=== PATIENT | female | born 1935 | race Caucasian/White ===

== ENCOUNTER 2017-01-22 17:06 | Inpatient (IN) | payer MEDICARE, BC ==
[~2017-01-22] VITALS: Ht 157.5 cm; Wt 71.0 kg
[2017-01-22 18:52] VITALS: O2SAT 92
[2017-01-22] MEDS ORDERED: SODIUM CHLORIDE FLUSH PRN IV FLUSH (19:30)
[2017-01-22] MEDS ORDERED: MORPHINE SULFATE 4 MG/ML INJ IV PRN (19:30)
[2017-01-22 20:00] VITALS: BP 140/63; PULSE 61; RESP 17; TEMP 97.1; O2SAT 99
[2017-01-22] MEDS: ACETAMINOPHEN/HYDROcodone 325 MG/5 MG TAB PO PRN ×2 (20:04→23:43)
[2017-01-22] MEDS: PRAVASTATIN SOD 80 MG TAB PO SCH (20:08)
[2017-01-22] MEDS: SODIUM CHLORIDE FLUSH BID IV FLUSH SCH (20:09)
[2017-01-22 22:17] VITALS: O2SAT 95
[2017-01-22] MEDS: DORZOLAMIDE/TIMOLOL OPTH SOLN 10 ML BTL EACH EYE SCH (23:39)
[2017-01-22] MEDS: LATANOPROST 0.005% OPHT SOLN 2.5 ML BTL EACH EYE SCH (23:40)
[2017-01-23] VITALS: BP 141/63; PULSE 66; RESP 17; TEMP 96.4; O2SAT 98
[2017-01-23 04:00] VITALS: BP 124/63; PULSE 61; RESP 17; TEMP 96.2; O2SAT 98
[2017-01-23 08:00] VITALS: BP 108/53; PULSE 62; RESP 16; TEMP 97.2; O2SAT 96
[2017-01-23] MEDS: SODIUM CHLORIDE FLUSH BID IV FLUSH SCH ×2 (08:13→21:23)
[2017-01-23] MEDS: ACETAMINOPHEN/HYDROcodone 325 MG/5 MG TAB PO PRN ×3 (08:22→23:00)
--- NOTE | 2017-01-23 08:31 | RADRPT ---
EXAM DATE/TIME: 01/23/2017 07:32 [facility] COMPARISON: No previous studies available for comparison. INDICATIONS : Right sided chest tube. MEDICAL HISTORY : None. SURGICAL HISTORY : None. ENCOUNTER: Initial ACUITY: 1 day PAIN SCORE: 8/10 LOCATION: Right upper chest FINDINGS: A right -sided chest tube is noted within the right mid lung field medially. No residual pneumothora x is noted. A right subclavian Awflez-B-Pccz has its tip iu the superior vena cava. Minimal bibasil ar atelectasis is noted. Degenerative changes and scoliosis of the thoracic spine are noted. A tiny left pleural effusion is noted. The heart is normal. Hardware is noted within the right humerus. CONCLUSION: 1. No pneumothorax. 2. Minimal bibasilar atelectasis. 3. Tiny left pleural effusion. 4. Degenerative changes and scoliosis of the thoracic spine. Massimo Barbosa MD on January 23, 2017 at 8:16 Board Certified Radiologist. This report was verified electronically.
[2017-01-23] MEDS: DORZOLAMIDE/TIMOLOL OPTH SOLN 10 ML BTL EACH EYE SCH ×2 (09:00→21:24)
[2017-01-23] MEDS: LATANOPROST 0.005% OPHT SOLN 2.5 ML BTL EACH EYE SCH ×2 (09:00→21:26)
[2017-01-23 09:03] VITALS: O2SAT 98
[2017-01-23 12:00] VITALS: BP 135/64; PULSE 68; RESP 16; TEMP 96.3; O2SAT 98
--- NOTE | 2017-01-23 15:59 | HHI.PR ---
Subjective Subjective Notes Resting in bed No issues Pain better today Objective Vitals/I&O Vital Signs Date Time Temp Pulse Resp B/P (MAP) Pulse Ox O2 Delivery O2 Flow Rate FiO2 01/23/17 12:00 96.3 68 16 135/64 (87) 98 01/23/17 09:03 Nasal Cannula 3.00 Cardiovascular: Regular Lungs: Clear Abdomen: Non-distended, Non-tender Extremities: Other Narrative Exam RIGHT chest port in place ---dressing c/d/i RIGHT chest tube pigtail in place on wall suction; no air leak A/P Assessment and Plan 81 year old female POD1 Infusaport placement out outpatient surgery center; CXR shows PTX -Pigtail chest tube in place to wall suction -CXR shows no PTX -Regular diet -Pain control -OOB as tolerated Attending Note - Dr. Mckeon Less pain today; much more comfortable No air leak on CT; minimal output Leave on suction today; water seal in AM and recheck CXR May remove tube in PM tomorrow if lung stays up The exam, history, and the medical decision-making described in the above note were completed with the assistance of the mid-level provider. I reviewed and agree with the findings presented. I attest that I had a rtsj-ax-pabc encounter with the patient on the same day, and personally performed and documented my assessment and findings in the medical record. Mya Watters Jan 23, 2017 15:58 Geronimo Mckeon MD Jan 23, 2017 16:09
[2017-01-23 20:00] VITALS: BP 137/70; PULSE 64; RESP 17; TEMP 98; O2SAT 100
[2017-01-23] MEDS: PRAVASTATIN SOD 80 MG TAB PO SCH (21:21)
[2017-01-24] VITALS: BP 121/69; PULSE 62; RESP 17; TEMP 97.4; O2SAT 100
[2017-01-24] MEDS: ACETAMINOPHEN/HYDROcodone 325 MG/5 MG TAB PO PRN ×2 (05:50→20:42)
[2017-01-24 08:00] VITALS: BP 137/67; PULSE 62; RESP 20; TEMP 97.5; O2SAT 100
[2017-01-24] MEDS: LATANOPROST 0.005% OPHT SOLN 2.5 ML BTL EACH EYE SCH ×2 (09:00→20:43)
[2017-01-24 09:45] VITALS: O2SAT 99
[2017-01-24] MEDS: DORZOLAMIDE/TIMOLOL OPTH SOLN 10 ML BTL EACH EYE SCH ×2 (09:55→20:42)
--- NOTE | 2017-01-24 10:58 | HHI.PR ---
Subjective Subjective Notes Resting in bed Talking on the phone Objective Vitals/I&O Vital Signs Date Time Temp Pulse Resp B/P (MAP) Pulse Ox O2 Delivery O2 Flow Rate FiO2 01/24/17 09:45 99 Nasal Cannula 3.00 01/24/17 08:00 97.5 62 20 137/67 (90) Cardiovascular: Regular Lungs: Clear Abdomen: Non-distended, Non-tender Extremities: No edema Narrative Exam RIGHT chest port in place ---dressing c/d/i RIGHT chest tube pigtail in placed on water seal A/P Assessment and Plan 81 year old female POD2 Infusaport placement out outpatient surgery center; CXR shows PTX -Pigtail chest tube in place---placed to water seal -CXR this AM -Regular diet -Pain control -OOB as tolerated -Will evaluate CXR after complete for possible removal of CT Attending Note - Dr. Mckeon 7mm PTX on water seal; placed back to suction Will recheck CXR back on suction this evening; will need to leave on suction 24 hrs. No air leak; minimal output The exam, history, and the medical decision-making described in the above note were completed with the assistance of the mid-level provider. I reviewed and agree with the findings presented. I attest that I had a cooq-nl-ioeq encounter with the patient on the same day, and personally performed and documented my assessment and findings in the medical record. Mya Watters Jan 24, 2017 10:58 Geronimo Mckeon MD Jan 24, 2017 16:52
[2017-01-24 12:00] VITALS: BP 117/58; PULSE 55; RESP 18; TEMP 97.7; O2SAT 100
--- NOTE | 2017-01-24 12:19 | RADRPT ---
EXAM DATE/TIME: 01/24/2017 11:03 [facility] COMPARISON: CHEST SINGLE AP, January 23, 2017, 7:32. INDICATIONS : Pneumothorax. MEDICAL HISTORY : Left breast cancer SURGICAL HISTORY : Port for breast cancer recently ENCOUNTER: Initial ACUITY: 1 day PAIN SCORE: 5/10 LOCATION: Right lower back FINDINGS: A right-sided chest tube is again noted in good position. There is a very tiny left apical pneumotho rax measuring approximately 7 mm. The heart is stable. The lungs are clear. A right subclavian In fuse-A-Port has its tip in the superior vena cava. Degenerative changes and scoliosis of the thoraco lumbar spine are noted. CONCLUSION: 1. Tiny right apical pneumothorax measuring 7mm. 2. Degenerative changes and scoliosis of the thoracolumbar spine. Massimo Barbosa MD on January 24, 2017 at 12:08 Board Certified Radiologist. This report was verified electronically.
[2017-01-24 16:00] VITALS: BP 107/54; PULSE 62; RESP 18; TEMP 97.8; O2SAT 100
--- NOTE | 2017-01-24 17:33 | RADRPT ---
EXAM DATE/TIME: 01/24/2017 16:57 [facility] COMPARISON: CHEST SINGLE AP, January 23, 2017, 7:32. CHEST SINGLE AP, January 24, 2017, 11:03. INDICATIONS : Pneumothorax MEDICAL HISTORY : None. SURGICAL HISTORY : None. ENCOUNTER: Subsequent ACUITY: 2 days PAIN SCORE: 0/10 LOCATION: chest FINDINGS: His report in good position. Small bore chest tube in good position. Negative for pneumothorax. Aileen ngs are clear. The heart and pulmonary vascularity are normal. CONCLUSION: Small bore chest tube in place on the right without pneumothorax. Sherif Simpson MD FACR on January 24, 2017 at 17:30 Board Certified Radiologist. This report was verified electronically.
[2017-01-24 20:00] VITALS: BP 143/63; PULSE 63; RESP 18; TEMP 97.3; O2SAT 99
[2017-01-24] MEDS: SODIUM CHLORIDE FLUSH BID IV FLUSH SCH (20:41)
[2017-01-24] MEDS: PRAVASTATIN SOD 80 MG TAB PO SCH (20:42)
[2017-01-25] VITALS (7 sets, daily range): BP systolic 125–161; BP diastolic 58–69; PULSE 55–69; RESP 15–20; TEMP 96.4–97.7; O2SAT 96–100
[2017-01-25] MEDS: DORZOLAMIDE/TIMOLOL OPTH SOLN 10 ML BTL EACH EYE SCH ×2 (09:00→22:33)
[2017-01-25] MEDS: LATANOPROST 0.005% OPHT SOLN 2.5 ML BTL EACH EYE SCH ×2 (09:00→22:33)
[2017-01-25] MEDS: SODIUM CHLORIDE FLUSH BID IV FLUSH SCH ×2 (09:00→21:00)
--- NOTE | 2017-01-25 09:41 | RADRPT ---
EXAM DATE/TIME: 01/25/2017 09:10 [facility] COMPARISON: CHEST SINGLE AP, January 24, 2017, 16:57. INDICATIONS : Evaluate for pneumothorax. MEDICAL HISTORY : None. SURGICAL HISTORY : None. ENCOUNTER: Subsequent ACUITY: 3 days PAIN SCORE: 0/10 LOCATION: Left chest FINDINGS: There is a CT compatible Nrbwcw-f-Tyqt in place from the right subclavian approach. There is a right pigtail catheter in place in the right chest. No pneumothorax is seen. The heart size is normal. The lungs are clear. Orthopedic hardware is seen at the proximal right humerus. There is a levocurvature of the thoracolumbar region. CONCLUSION: Right chest tube without evidence of a pneumothorax. Flex Grimes MD on January 25, 2017 at 9:38 Board Certified Radiologist. This report was verified electronically.
--- NOTE | 2017-01-25 10:04 | HHI.PR ---
Subjective Subjective Notes Resting in bed No issues overnight Objective Vitals/I&O Vital Signs Date Time Temp Pulse Resp B/P (MAP) Pulse Ox O2 Delivery O2 Flow Rate FiO2 01/25/17 08:00 96.4 60 17 161/67 (98) 100 01/24/17 20:00 Nasal Cannula 3.00 Humidified Cardiovascular: Regular Lungs: Clear Abdomen: Non-distended, Non-tender Extremities: No edema Narrative Exam RIGHT chest port in place ---dressing c/d/i RIGHT chest tube pigtail in placed on water seal A/P Assessment and Plan 81 year old female POD3 Infusaport placement out outpatient surgery center; CXR shows PTX -Pigtail chest tube in place---placed to water seal -Repeat CXR shows no PTX -Will DC chest tube -Regular diet -Pain control -OOB as tolerated -Likely home tomorrow I CERTIFY AND ATTEST THAT I PERSONALLY EXAMINED THE PATIENT IN THEIR ROOM. MS WATTERS DOCUMENTED OUR VISIT AND ENTERED ORDERS IN THE EMR UNDER MY DIRECT SUPERVISION. I REVIEWED THE CARE PLAN WITH THE NURSING STAFF, THE PATIENT AND THEIR FAMILY. MOIZ DAY MD [facility] Mya Watters Jan 25, 2017 10:04 Moiz Day MD Jan 28, 2017 13:26
--- NOTE | 2017-01-25 14:41 | RADRPT ---
EXAM DATE/TIME: 01/25/2017 13:48 [facility] COMPARISON: CHEST SINGLE AP, January 25, 2017, 9:10. INDICATIONS : Evaluate pneumothorax. MEDICAL HISTORY : None. SURGICAL HISTORY : Right chest tube. ENCOUNTER: Subsequent ACUITY: 3 days PAIN SCORE: 0/10 LOCATION: Bilateral chest FINDINGS: There has been interval removal of right-sided chest tube. There is no significant pneumothorax altho ugh there has been interval development of small amount of subcutaneous emphysema in the right chest wall. Cardi result contours are stable. Remainder of exam is unchanged. CONCLUSION: 1. No significant pneumothorax following right chest tube removal. However, there has been interval d evelopment of small amount of right lateral chest wall subcutaneous emphysema which may reflect chest wall decompression. Clinical correlation and continued followup is recommended. Travis Bob MD on January 25, 2017 at 14:37 Board Certified Radiologist. This report was verified electronically.
[2017-01-25] MEDS: PRAVASTATIN SOD 80 MG TAB PO SCH (22:33)
[2017-01-26] VITALS: BP 138/63; PULSE 84; RESP 18; TEMP 99.1; O2SAT 96
[2017-01-26 07:51] VITALS: O2SAT 97
[2017-01-26 08:00] VITALS: BP 131/74; PULSE 67; RESP 15; TEMP 97.7; O2SAT 97
--- NOTE | 2017-01-26 08:52 | HHI.PR ---
Subjective Subjective Notes no acute issues, tolerating diet 97% sats Objective Vitals/I&O Vital Signs Date Time Temp Pulse Resp B/P (MAP) Pulse Ox O2 Delivery O2 Flow Rate FiO2 01/26/17 07:51 97 Nasal Cannula 3.00 01/26/17 00:00 99.1 84 18 138/63 (88) Lungs: Clear Abdomen: Other (port c/d/i) A/P Assessment and Plan s/p port, ptx, s/p ct removal PLAN Doing well reg diet pain control cxr pending d.c following cxr if stable Arpan Chow MD Jan 26, 2017 08:52
[2017-01-26] MEDS: DORZOLAMIDE/TIMOLOL OPTH SOLN 10 ML BTL EACH EYE SCH (08:56)
[2017-01-26] MEDS: LATANOPROST 0.005% OPHT SOLN 2.5 ML BTL EACH EYE SCH (08:56)
[2017-01-26] MEDS: SODIUM CHLORIDE FLUSH BID IV FLUSH SCH (08:57)
--- NOTE | 2017-01-26 09:45 | RADRPT ---
EXAM DATE/TIME: 01/26/2017 09:00 [facility] COMPARISON: CHEST SINGLE AP, January 25, 2017, 9:10. CHEST SINGLE AP, January 25, 2017, 13:48. INDICATIONS : Shortness of breath, concern for right sided pneumothorax. MEDICAL HISTORY : None. SURGICAL HISTORY : Chest tube, right. Infusaport, right. ENCOUNTER: Subsequent ACUITY: 2 days PAIN SCORE: 0/10 LOCATION: Bilateral chest FINDINGS: There is a CT compatible Gvldfb-p-Uudw in place from the right subclavian approach. There does appear to be minimal pneumothorax seen over the right apex measuring 5 mm in thickness. This is unchanged f rom prior exam. The lungs are clear. The heart size is normal. There is air in the subcutaneous tissu es at the right lateral chest and axillary region. Surgical hardware is seen in the proximal right hu merus. There is a levocurvature of the thoracolumbar region. CONCLUSION: 1. Minimal right pneumothorax which appears unchanged over the right apex measuring [address] compatible Zhuxlx-s-Rcjy in place from a right subclavian approach. 3. The lungs are clear. 4. Persistent subcutaneous emphysema seen in the right lateral chest. Flex Grimes MD on January 26, 2017 at 9:40 Board Certified Radiologist. This report was verified electronically.
[2017-01-26] MEDS ORDERED: NORC5TAB PO (10:41)
--- NOTE | 2017-02-06 12:53 | HHI.DS ---
Discharge Summary Admission Date Jan 23, 2017 at 10:19 Discharge Date: Jan 26, 2017 Admitting Diagnosis Brief History 81 year old female s/p Infusaport placement out outpatient surgery center; CXR shows PTX PE at Discharge Alert and awake Cardio: RRR Resp: CTAB Abd: soft non tender RIGHT chest port in place ---dressing c/d/i RIGHT chest tube pigtail removed---c/d/i dressing Hospital Course This is a 81 year old female s/p Infusaport placement out outpatient surgery center; CXR shows PTX . A small pigtail chest tube was placed. The patient's PTX resolved and the chest tube was removed several days later. The patient's pain was controlled using oral pain medications. She was able to ambulate. She was DCed home with instruction to follow up with Dr. Mckeon. Pt Condition on Discharge: Good Discharge Disposition: Discharge Home Discharge Instructions DIET: Follow Instructions for: As Tolerated, No Restrictions Activities you can perform: Regular-No Restrictions Mya Watters Feb 06, 2017 12:53
== END 2017-01-26 11:35 | disposition home or self-care (01) | DRG 201 ==
LOC: N07B 17:50 → OBSVTOIN 01-23 10:19
PROVIDERS: ADMIT Surgery Trauma Surgery; ATTEND Surgery Trauma Surgery
PROC: 0W9930Z Drainage of Right Pleural Cavity with Drainage Device, Percutaneous Approach (ICD-10-PCS; principal; 2017-01-22)
DX: J95.811 Postprocedural pneumothorax (principal); C50.912 Malignant neoplasm of unspecified site of left female breast; Y83.8 Other surgical procedures as the cause of abnormal reaction of the patient, or of later complication, without mention of misadventure at the time of the procedure; Y82.8 Other medical devices associated with adverse incidents; Y92.530 Ambulatory surgery center as the place of occurrence of the external cause
CPT/HCPCS: 71010; 77001; C1729; C1788; J0131; J0690; J1642; J1644; J2250; J2405; J3010; J3370; J7120

== ENCOUNTER → 2017-01-22 | Day surgery (SDC) | payer MEDICARE, BC ==
[~2017-01-22] MED LIST: ACETAMINOPHEN 1000 MG/100 ML 0 ML IV ONE; HEPARIN SODIUM - IV 2,000 UNITS/2 ML VIAL OTHER ONE; LACTATED RINGER'S 1000 ML INJ 0 ML ONE; LACTATED RINGER'S 1000 ML INJ 1,000 ML ONE; LIDOCAINE 1%/EPINEPHrine 1:200,000 PF SOLN 30 ML VIAL ONE; MIDAZOLAM HCL 2 MG/2 ML VIAL ONE; NORC5TAB PO; ONDANSETRON HCL 4 MG/2 ML VIAL IV PUSH ONE; PROPOFOL 200 MG/20 ML AMP IV ONE; SODIUM CHLORIDE 0.9% 20 ML VIAL ONE; SODIUM CHLORIDE 0.9% INJ 10 ML ONE; VANCOMYCIN HCL 1000 MG VIAL ONE; ceFAZolin 2 GM PREMIX 0 ML ONE; ceFAZolin INJ 1,000 MG VIAL ONE
--- NOTE | 2017-01-23 11:09 | MP ---
cc: GERONIMO MCKEON M.D.BREANNEKATHY DATE OF SURGERY 01/22/2017 PROCEDURE Hapfrz-H-Pdfu placement with intraoperative use of fluoroscopy. 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 POSTOPERATIVE DIAGNOSIS Invasive ductal carcinoma of the left breast with need for IV chemotherapy. ANESTHESIA TIVA SURGEON Geronimo Mckeon MD ESTIMATED BLOOD LOSS Less than 10 mL FLUIDS 650 mL crystalloid COMPLICATIONS None DRAINS None SPECIMEN None PROCEDURE IN DETAIL The patient was taken to the operating room and placed on the operating table in the supine position. A shoulder roll was placed and along the spine the arms were tucked. The chest and neck were prepped and draped bilaterally. Time-out was taken confirming the correct patient, site, and procedure to be performed. With IV sedation begun, the right subclavian region was infiltrated with local anesthetic and the patient was placed in Trendelenburg position. An 18 gauge needle was passed into the subclavian vein on the third attempt and good blood return was achieved. A guidewire was passed down the needle and under fluoroscopic guidance was seen to pass up into the neck. The needle was withdrawn and the guidewire withdrawn and then repositioned down into the superior vena cava. An Mlpnuj-Q-Ulsu pocket was then created inferior to the exit site of the wire after injecting with local anesthetic. The pocket was created with sharp dissection and electrocautery. The catheter was then brought through a short tunnel from the exit site of the wire to the pocket. This was snapped to the drape with a hemostat. The introducer and sheath were then passed over the guidewire and seen under fluoroscopy to make a gentle curve into the superior vena cava. The guidewire and introducer were then removed and the catheter was passed down the sheath. The sheath was peeled away and the catheter withdrawn to 15 cm where the tip was seen to be in the superior vena cava. The catheter then had the hub slid over it and the catheter trimmed to length and the port attached. The hub was snapped over the connection to create a secure connection. The port was placed into the pocket and secured at two points with 2-0 Prolene suture. The percutaneous puncture site and the port pocket were both closed with interrupted 3-0 Vicryl suture. The port pocket was then closed in the skin with 5-0 PDS in a running subcuticular fashion. The wounds were dressed with Steri-Strips and the patient was taken back to the recovery room in stable condition. Sponge, needle and instrument counts were reported to be correct. A stat chest x-ray is pending at the time of this dictation. The patient tolerated the procedure extremely well. MD KINSEY Cardozo/EMI /12:48 PM /10:58 AM
== END | disposition home or self-care (01) ==
LOC: ESDC 10:03
PROVIDERS: ATTEND Surgery Trauma Surgery
DX: Z45.2 Encounter for adjustment and management of vascular access device (principal); C50.912 Malignant neoplasm of unspecified site of left female breast
CPT/HCPCS: 00532; 36561; 77001; C1788; J0690; J1644; J2250; J2405; J3010; J3370; J7120; C1729; J0131; J1642

== ENCOUNTER → 2017-06-30 | Day surgery (SDC) | payer MEDICARE, BC ==
[~2017-06-30] MED LIST changes: -ACETAMINOPHEN 1000 MG/100 ML 0 ML IV ONE; +ACETAMINOPHEN 1000 MG/100 ML 100 ML IV ONE; +ACETAMINOPHEN/HYDROcodone 325 MG/5 MG TAB ONE; -HEPARIN SODIUM - IV 2,000 UNITS/2 ML VIAL OTHER ONE; +ISOSULFAN BLUE 50 MG/5 ML VIAL SQ ONE; -LACTATED RINGER'S 1000 ML INJ 0 ML ONE; +LIDOCAINE 1%/EPINEPHrine 1:100,000 SOLN 30 ML VIAL ONE; -LIDOCAINE 1%/EPINEPHrine 1:200,000 PF SOLN 30 ML VIAL ONE; -MIDAZOLAM HCL 2 MG/2 ML VIAL ONE; +PROPOFOL 100 MG/10 ML INJ IV ONE; -PROPOFOL 200 MG/20 ML AMP IV ONE; +SODIUM CHLOR 0.9% 250 ML BAG IV ONE; -SODIUM CHLORIDE 0.9% 20 ML VIAL ONE; -SODIUM CHLORIDE 0.9% INJ 10 ML ONE; -ceFAZolin 2 GM PREMIX 0 ML ONE
--- NOTE | 2017-07-01 12:42 | MP ---
cc: RAYNE BRITTON M.D. DATE OF PROCEDURE 06/30/2017 PROCEDURE 1. Injection Lymphazurin blue dye. 2. Intraoperative localization and excision sentinel lymph nodes left axilla x2. 3. Needle-localized wide local excision left breast. PREOPERATIVE DIAGNOSIS Invasive ductal carcinoma left breast, locally advanced. POSTOPERATIVE DIAGNOSIS Invasive ductal carcinoma left breast, locally advanced. ANESTHESIA LMA. SURGEON MD [employer] Shahla Roberson, MS3 ESTIMATED BLOOD LOSS 50 mL. FLUIDS 650 mL crystalloid. COMPLICATIONS None. DRAINS None. SPECIMEN Left axillary tissue and left breast needle-localized tissue to pathology. PROCEDURE IN DETAIL The patient went to the Department of nuclear medicine where she underwent injection with technetium 99 sulfur colloid. She also underwent needle localization procedure in the left breast. The patient was taken back down for imaging which failed to demonstrate sentinel lymph nodes. She was taken to the operating room and placed on the operating table in the supine position. After a time-out was taken confirming the correct patient, site, and procedures to be performed, the left breast was injected with 3 mL of Lymphazurin blue dye in the retroareolar and peritumoral region. This was gently compressed for about 5 minutes. Careful examination with the probe did not reveal any activity in the axilla. Following this, the breast was formally prepped and draped. The axilla was incised and dissection carried down into the axilla. No blue dye channels were noted and no activity above background was noted utilizing the Navigator probe. However, palpation revealed two lymph nodes that appeared slightly out of the ordinary and these were both excised and passed off the table. The larger of the two nodes also had adjacent tissue that was excised simultaneous with this. After removing this tissue the thoracodorsal nerve, artery and vein were noted to be intact. Dissection was carried out superiorly toward the lateral thoracic vein and no lymph nodes were noted in this area. Further dissection was felt to be unwarranted and at this point, with hemostasis assured, the wound was closed in two layers with interrupted 3-0 Vicryl suture and 5-0 PDS in a running subcuticular fashion. Attention was then turned to the breast and a circumareolar incision was made from approximately the 12 o'clock to the 4 o'clock position on the breast at the edge of the nipple. Dissection was carried out to the needle laterally which was cut at the skin and brought into the wound. A core of tissue was removed including the needle. This was oriented with silk sutures and sent for specimen analysis where Radiology confirmed the lesion in question to be present within the middle of the specimen. The microclip was present as well. When this was completed the wound was reinspected and all bleeding meticulously controlled with electrocautery. With hemostasis assured, the wound was closed in two layers with interrupted 3-0 Vicryl suture and 5-0 PDS in a running subcuticular fashion. Both wounds were dressed with Steri-Strips. The patient was taken back to the recovery room in stable condition. She tolerated the procedure well. Sponge, needle and instrument counts were reported be correct x2. MD KINSEY Cardozo/SSB /3:12 PM /12:18 PM
== END | disposition home or self-care (01) ==
LOC: ESDC 09:08
PROVIDERS: ATTEND Surgery Trauma Surgery
DX: C50.912 Malignant neoplasm of unspecified site of left female breast (principal)
CPT/HCPCS: 00400; 01610; 19125; 38525; 38792; 88307; J0131; J0690; J2405; J3010; J3370; J7050; J7120; Q9968